=== PATIENT | female | born 1960 | race Caucasian/White ===

== ENCOUNTER 2018-06-12 08:58 | Inpatient (IN) ==
[2018-06-12] MEDS ORDERED: Clindamycin 900 MG/50 ML 900 MG/50 ML IV.SOLN IVPB ONE (09:21)
[2018-06-12] MEDS ORDERED: Albuterol 2.5 MG/3 ML NEBULIZER IH ONE (09:21)
[2018-06-12] MEDS ORDERED: Ringers Solution, Lactated 1,000 ML IVC SCH (09:30)
--- NOTE | 2018-06-12 09:31 | Discharge Summary ---
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: with [facility] use Diabetes mellitus complication status: with unspecified complications Qualified Code(s): E11.8 - Type 2 diabetes mellitus with unspecified complications; Z79.4 - prison (current) use of insulin (5) HTN (hypertension) Priority: Secondary Status: Chronic Qualifiers: Hypertension type: unspecified Qualified Code(s): I10 - Essential (primary) hypertension (6) HLD (hyperlipidemia) Priority: Secondary Status: Chronic Qualifiers: Hyperlipidemia type: unspecified Qualified Code(s): E78.5 - Hyperlipidemia, unspecified (7) History of coronary artery bypass graft Priority: Secondary Status: Chronic (8) History of NM (myocardial infarction) Priority: Secondary Status: Chronic (9) Hypothyroidism Priority: Secondary Status: Chronic Qualifiers: Hypothyroidism type: unspecified Qualified Code(s): E03.9 - Hypothyroidism, unspecified (10) Obesity Priority: Secondary Status: Chronic Qualifiers: Obesity type: unspecified obesity type Obesity classification: adult class 3 (BMI >= 40) Serious obesity comorbidity presence: unspecified whether serious comorbidity present Body mass index: BMI 45.0-49.9 Qualified Code(s): E66.01 - Morbid (severe) obesity due to excess calories; Z68.42 - Body mass index (BMI) 45.0-49.9, adult (11) Chronic pain Priority: Secondary Status: Chronic Comments: Patient is to hold chronic pain medication temporarily in immediate postoperative period while taking postoperative medications from [facility]. Qualifiers: Chronic pain type: other chronic pain Qualified Code(s): G89.29 - Other chronic pain - Hospital Course Hospital course: Ms. Burgess is a 57 year old female - Time Spent with Patient Total time spent providing and/or coordinating discharge services: - Discharge Medications Home Medications: Albuterol Sulfate [Proair Hfa] 2 puff IH Q4H PRN 06/12/18 [History] Amitriptyline [Elavil] 50 mg PO HS 06/12/18 [History] Aspirin Enteric Coated [Aspirin EC] 325 mg PO BID 10 Days #20 tablet. 06/12/18 [Rx] Atorvastatin Calcium [Lipitor] 20 mg PO HS 06/12/18 [History] Calcitriol [Rocaltrol] 0.25 mcg PO DAILY 06/12/18 [History] Carvedilol [Coreg] 6.25 mg PO BIDWM 06/12/18 [History] Cholecalciferol (D-3) [Vitamin D] 5,000 unit PO DAILY 06/12/18 [History] Diclofenac Sodium [Voltaren] 1 appl TP DAILY PRN 06/12/18 [History] Docusate Sodium [Colace] 100 mg PO BID 5 Days #10 capsule 06/12/18 [Rx] Fluticasone Propionate Nasal [Flonase] 2 spr NS DAILY PRN 06/12/18 [History] Garlic [Odor Free Garlic] 200 mg PO DAILY 06/12/18 [History] Hydrocodone/Acetaminophen [Dille 10-325 Tablet] 1 tab PO Q6H PRN 06/12/18 [History] Levothyroxine [Synthroid] 175 mcg PO 0630 06/12/18 [History] Loratadine [Allergy Relief] 10 mg PO DAILY 06/12/18 [History] Montelukast [Singulair] 10 mg PO DAILY 06/12/18 [History] Multivit-Min/FA/Lycopen/Lutein [Adults 50+ Multivitamin Tablet] 1 tab PO DAILY 06/12/18 [History] [place]-3/Dha/Epa/Fish Oil [Fish Oil 1,000 mg Softgel] 1 cap PO DAILY 06/12/18 [History] Potassium Gluconate [Potassium] 99 mg PO DAILY 06/12/18 [History] Ramipril [Altace] 2.5 mg PO DAILY 06/12/18 [History] Subcutaneous Insulin Pump [T:Slim] 1 each MC AD 06/12/18 [History] Amitriptyline [Elavil] 75 mg PO HS tablet 06/14/18 [Rx] Levothyroxine [Synthroid] 150 mcg PO 0630 tablet 06/14/18 [Rx] Pregabalin [Lyrica] 100 mg PO DAILY capsule 06/14/18 [Rx] Allergies/Adverse Reactions: Allergy/AdvReac Type Severity Reaction Status Date / Time Amoxicillin Allergy Itching Verified 06/12/18 10:31 tramadol [From Ultram] Allergy Itching Verified 06/12/18 10:31 acetaminophen [From Percocet] AdvReac Itching Verified 06/12/18 10:31 meloxicam [From Mobic] AdvReac Rash Verified 06/12/18 10:31 Oxycodone [From Percocet] AdvReac Itching Verified 06/12/18 10:31 Primary care physician: Galina Agarwal CNP - Patient Status Disposition: Transfer Inpatient Rehab Fac Condition: Good - Discharge Instructions Instructions: Hydrocodone/Acetaminophen (By mouth), Pregabalin (By mouth) Follow Up With: Jakub Engel MD [Partnered Physician] - 07/12/18 5:00 pm Karla Sorensen PAC [Physician Production Team Leader] - 06/22/18 2:00 pm (Second followup 06/30/18 @ 8am) <Jakub Engel - Last Filed: 06/14/18 10:28> Orders not resulted at time of discharge: Pending orders 06/12/18 12:15 Culture,Anaerobic [RM] Routine Culture,Wound [RM] Routine 06/14/18 06:51 Venous Doppler [EV venous imaging LE LT] Stat Date of Encounter: 06/14/18 - Discharge Diagnosis (1) Acute kidney injury Priority: Primary Status: Acute - Hospital Course Hospital course: Ms. Burgess is a 57 year old female - Time Spent with Patient Total time spent providing and/or coordinating discharge services: Date of admission: 06/12/18 14:20 Primary care physician: Galina Agarwal CNP Consults: 06/12/18 14:29 Consult to Occupational Therapy [CONS] Routine Comment: Evaluate, develop and implement POC Reason for Consult: post knee surgery Does patient have active BEDREST order?: No Is patient medically & hemodynamically stable?: Yes Consult to Orthopedic Navigator [CONS] [CONS] Routine Consult to Physical Therapy [CONS] Routine Comment: Evaluate, develop and impliment POC Reason for Consult: post knee surgery Does patient have active BEDREST order?: No Is patient medically & hemodynamically stable?: Yes Consult to Soil Fertility Extension Specialist [CONS] Routine Reason for SW Consult: post op joint replacement RT Post Op Consult [CONS] Routine Labs on day of discharge: Labs from last 24 hours 06/14/18 06/14/18 06/13/18 04:48 04:48 14:54 Hgb 9.4 L Hct 28.3 L Sodium 133 L Potassium 4.3 Chloride 101 Carbon Dioxide 25 BUN 19 Creatinine 1.50 H Est GFR ( Amer) 43 L Est GFR (Non-Af Amer) 36 L BUN/Creatinine Ratio 13 Glucose 300 H POC Glucose 412 H* Calculated Osmolality 289 Calcium 8.6 06/12/18 20:19 Hgb Hct Sodium Potassium Chloride Carbon Dioxide BUN Creatinine Est GFR ( Amer) Est GFR (Non-Af Amer) BUN/Creatinine Ratio Glucose POC Glucose 130 H Calculated Osmolality Calcium Preliminary micro results at discharge 06/12/18 12:15 Wound Culture - Preliminary Left Knee No growth. - Impressions ITS Impressions Knee X-Ray 06/12/18 01:00 IMPRESSION: 1. Revision of the left knee arthroplasty with no acute abnormality. D/ / César Cid MD / César Cid MD Interpreting Provider: César Cid MD Knee X-Ray 06/12/18 12:30 IMPRESSION: 1. Revision of the left knee arthroplasty with no acute abnormality. D/ / César Cid MD / César Cid MD Interpreting Provider: César Cid MD <Melani Owens - Last Filed: 06/15/18 22:10> - NOTES TO OUTPATIENT PROVIDER Notes to Outpatient Provider: Will need repeat H&H on 06/16/18 and will need to monitor renal function. Orders not resulted at time of discharge: Pending orders 06/12/18 12:15 Culture,Anaerobic [RM] Routine Date of Encounter: 06/15/18 Time of Encounter: 21:54 - Discharge Diagnosis (1) Status post revision of total replacement of left knee Priority: Primary Status: Acute (2) Painful orthopaedic hardware Priority: Primary Status: Chronic (3) Acute kidney injury Priority: Secondary Status: Acute (4) Chronic pain Priority: Secondary Status: Chronic Qualifiers: Chronic pain type: other chronic pain Qualified Code(s): G89.29 - Other chronic pain (5) Diabetes mellitus Priority: Secondary Status: Chronic Qualifiers: Diabetes mellitus type: type 2 Diabetes mellitus [facility] 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 Diabetes mellitus complication status: with unspecified complications Qualified Code(s): E11.8 - Type 2 diabetes mellitus with unspecified complications; 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 of 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 (6) HLD (hyperlipidemia) Priority: Secondary Status: Chronic Qualifiers: Hyperlipidemia type: unspecified Qualified Code(s): E78.5 - Hyperlipidemia, unspecified (7) HTN (hypertension) Priority: Secondary Status: Chronic Qualifiers: Hypertension type: unspecified Qualified Code(s): I10 - Essential (primary) hypertension (8) History of NM (myocardial infarction) Priority: Secondary Status: Chronic (9) History of coronary artery bypass graft Priority: Secondary Status: Chronic (10) History of total left knee replacement Priority: Primary Status: Chronic (11) Hypothyroidism Priority: Secondary Status: Chronic Qualifiers: Hypothyroidism type: unspecified Qualified Code(s): E03.9 - Hypothyroidism, unspecified (12) Obesity Priority: Secondary Status: Chronic Qualifiers: Obesity type: unspecified obesity type Obesity classification: adult class 3 (BMI >= 40) Serious obesity comorbidity presence: unspecified whether serious comorbidity present Body mass index: BMI 45.0-49.9 Qualified Code(s): E66.01 - Morbid (severe) obesity due to excess calories; Z68.42 - Body mass index (BMI) 45.0-49.9, adult - Hospital Course Hospital course: Ms. Burgess is a 57 year old female status post Left revision total knee 06/12/18 with history of painful hardware from previous TKR, DM, HTN, HLD, obesity, hypothyroid, and h/o of NM/CABG. She was noted to have CLARIBEL after surgery which did show improvement with increased PO fluid intake and reduction of nephrotoxic meds. Will need to continue to monitor upon discharge. She did have several spikes in temperature with low 90s O2sat which improved with education of using IS but she was admittedly noncompliant with this despite education on risk of pneumonia after surgery. CXR showed no acute abnormalities. She did have LLE swelling and calf pain - doppler was negative for DVT. She participated in therapy and was stable at time of discharge. Patient was discharged after being evaluated by Dr. Engel this morning but before PCR. H/H - 8.8/26.6 - continuation of slight decrease - will have H&H repeated tomorrow may need to consider reaching out to her tax credit leasing consultant/PCP. Max POC glucose 412 on POD#1 POC glucose consistently in 200s last 2 days. Pain control adequate at this time. ECF plan - accepted to [facility] today. - Time Spent with Patient Total time spent providing and/or coordinating discharge services: Date of admission: 06/12/18 14:20 Primary care physician: Galina Agarwal CNP Consults: 06/12/18 14:29 Consult to Occupational Therapy [CONS] Routine Comment: Evaluate, develop and implement POC Reason for Consult: post knee surgery Does patient have active BEDREST order?: No Is patient medically & hemodynamically stable?: Yes Consult to Orthopedic Navigator [CONS] [CONS] Routine Consult to Physical Therapy [CONS] Routine Comment: Evaluate, develop and impliment POC Reason for Consult: post knee surgery Does patient have active BEDREST order?: No Is patient medically & hemodynamically stable?: Yes Consult to Soil Fertility Extension Specialist [CONS] Routine Reason for SW Consult: post op joint replacement RT Post Op Consult [CONS] Routine Discharging clinician: Jakub Engel Anticipated date of discharge: 06/15/18 Labs on day of discharge: Labs from last 24 hours 06/15/18 06/15/18 06/15/18 11:43 09:35 09:35 WBC 5.8 RBC 3.08 L Hgb 8.8 L Hct 26.6 L MCV 86.4 MCH 28.6 MCHC 33.1 RDW 13.8 Plt Count 118 L MPV 12.5 H Immature Gran % 1.0 Seg Neutrophils % 73.5 Lymphocytes % 10.8 Monocytes % 11.0 Eosinophils % 3.4 Basophils % 0.3 Neutrophils # 4.3 Lymphocytes # 0.6 Monocytes # 0.6 Eosinophils # 0.2 Basophils # 0.0 Sodium 134 L Potassium 4.1 Chloride 101 Carbon Dioxide 25 BUN 19 Creatinine 1.43 H Est GFR ( Amer) 46 L Est GFR (Non-Af Amer) 38 L BUN/Creatinine Ratio 13 Glucose 249 H POC Glucose 206 H Calculated Osmolality 289 Calcium 8.4 L 06/15/18 06/14/18 06/14/18 06:57 20:20 12:05 WBC RBC Hgb Hct MCV MCH MCHC RDW Plt Count MPV Immature Gran % Seg Neutrophils % Lymphocytes % Monocytes % Eosinophils % Basophils % Neutrophils # Lymphocytes # Monocytes # Eosinophils # Basophils # Sodium Potassium Chloride Carbon Dioxide BUN Creatinine Est GFR ( Amer) Est GFR (Non-Af Amer) BUN/Creatinine Ratio Glucose POC Glucose 259 H 286 H 224 H Calculated Osmolality Calcium 06/14/18 07:10 WBC RBC Hgb Hct MCV MCH MCHC RDW Plt Count MPV Immature Gran % Seg Neutrophils % Lymphocytes % Monocytes % Eosinophils % Basophils % Neutrophils # Lymphocytes # Monocytes # Eosinophils # Basophils # Sodium Potassium Chloride Carbon Dioxide BUN Creatinine Est GFR ( Amer) Est GFR (Non-Af Amer) BUN/Creatinine Ratio Glucose POC Glucose 275 H Calculated Osmolality Calcium Preliminary micro results at discharge 06/12/18 12:15 Anaerobic Culture - Preliminary Left Knee At this time, no anaerobic growth is present. The culture will be finalized after 5 days of incubation. - Impressions ITS Impressions Knee X-Ray 06/12/18 01:00 IMPRESSION: 1. Revision of the left knee arthroplasty with no acute abnormality. D/ / César Cid MD / César Cid MD Interpreting Provider: César Cid MD Knee X-Ray 06/12/18 12:30 IMPRESSION: 1. Revision of the left knee arthroplasty with no acute abnormality. D/ / César Cid MD / César Cid MD Interpreting Provider: César Cid MD Chest X-Ray 06/14/18 15:49 IMPRESSION: Cardiomegaly, otherwise, no acute abnormality seen chest D/ / Juan Negro MD / Juan Negro MD Interpreting Provider: Juan Negro MD - Patient Status Overall status at discharge: patient is progressing back to baseline - Diet and Activity Activity: as per physical therapy Diet: advance to your usual diet
--- NOTE | 2018-06-12 09:46 | History & Physical Report ---
Date of Encounter: 06/12/18 Time of Encounter: 09:46 24 Hour HP Update - Instructions Instructions: If the History and Physical is less than 30 days old and was completed prior to A.M. admission and or procedure and has NOT been updated on calendar day of procedure please complete this update prior to performing procedure. - Update Patient reports changes in Medical Condition: No Changes in examination, assessment, or condition: No Changes in Medication: No Preop tests/diagnostics Reviewed: Yes Surgery Remains Indicated: Yes Consent for Planned Operative Procedure(s) Verified: Yes - Pre-Operative Checklist Preoperative Checklist Indicated: No Prophylactic Antibiotic Ordered: Yes Is VTE Prophylaxis Indicated?: Yes
[2018-06-12] MEDS ORDERED: *HR* FentaNYL (PF) 100 MCG/2 ML VIAL ONE (10:11)
[2018-06-12] MEDS ORDERED: *HR* Midazolam HCl 2 MG/2 ML VIAL ONE ×2 (10:11→12:01)
[2018-06-12] MEDS ORDERED: Lidocaine -MPF 2% 2 ML VIAL ONE (10:11)
[2018-06-12] MEDS ORDERED: *HR* Propofol 200 MG/20 ML VIAL IVP ONE (10:11)
[2018-06-12] MEDS ORDERED: Dexamethasone 4 MG/ML VIAL ONE ×2 (10:15→10:24)
[2018-06-12] MEDS ORDERED: Ondansetron 4 MG/2 ML VIAL ONE (10:15)
--- NOTE | 2018-06-12 10:20 | Anesthesia Evaluation PreOp ---
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: Other (peripheral neuropathy from diabetes) Other Medical History: Renal (stage 3 ckd), Diabetes Type I (uses insulin pump), Thyroid (hypothyroidism), Other (BMI 49) Anesthesia History: No Prior Anesthetic Complications Alcohol Use: none Drug use: none Medications and Allergies Doxycycline 100 mg PO BID #20 capsule 06/01/17 [Rx] Aspirin Enteric Coated [Aspirin EC] 325 mg PO BID 10 Days #20 tablet.dr 06/12/18 [Rx] Docusate Sodium [Colace] 100 mg PO BID 5 Days #10 capsule 06/12/18 [Rx] Allergy/AdvReac Type Severity Reaction Status Date / Time Amoxicillin Allergy Itching Verified 05/15/18 15:56 tramadol [From Ultram] Allergy Itching Verified 05/15/18 15:56 acetaminophen [From Percocet] AdvReac Itching Verified 05/15/18 15:56 meloxicam [From Mobic] AdvReac Rash Verified 05/15/18 15:56 Oxycodone [From Percocet] AdvReac Itching Verified 05/15/18 15:56 - Meds/Allergy Pre-op Review Medications Reviewed: Yes Allergies Reviewed: Yes Beta Blockers on Current Med List: Yes (coreg) If Beta Blockers taken, Date/Time (Last Dose taken): 06-12-18 coreg 8 am Anesthesia Results - Imaging EKG: report reviewed, image reviewed (SINUS BRADYCARDIA ANTERIOR MYOCARDIAL INFARCTION, OF INDETERMINATE AGE) Additional studies: Laboratory Tests 05/15/18 05/15/18 05/15/18 16:23 16:23 16:23 WBC 4.9 Hgb 12.4 L Hct 38.9 Plt Count 172 PT 11.3 INR 1.0 APTT 33.7 Sodium 136 Potassium 4.4 Chloride 103 Carbon Dioxide 26 BUN 22 H Creatinine 1.27 Est GFR ( Amer) > 60 Est GFR (Non-Af Amer) 58 L BUN/Creatinine Ratio 17 Est Mean Plasma Glucose Hemoglobin A1c 05/15/18 16:23 WBC Hgb Hct Plt Count PT INR APTT Sodium Potassium Chloride Carbon Dioxide BUN Creatinine Est GFR ( Amer) Est GFR (Non-Af Amer) BUN/Creatinine Ratio Est Mean Plasma Glucose 160 Hemoglobin A1c 7.2 H Anesthesia Exam Last Vital Signs Temp 97.9 F 06/12/18 09:52 Pulse 68 06/12/18 09:52 Resp 18 06/12/18 09:52 BP 128/70 06/12/18 09:52 Pulse Ox 93 06/12/18 09:52 Weight: 134 kg NPO (# of Hours): > 8 hrs - HEENT Pupil (Motor): Pupils equal, EOMI Mallampati: III Teeth: Edentulous Oral Opening: Greater than 3 - FINANCIAL SERVICE REPRESENTATIVE LOC: Oriented - Cardiac Rhythm: Regular Murmur: None - Pulmonary Breath Sounds: bilateral Clear Respiratory Effort: Symmetrical Anesthesia Assess/Plan ASA Score: 4 Level of consciousness: Cooperative Anesthetic Plan: MAC, Spinal (with duramorph) Monitoring Plan: Standard Monitors Recovery Plan: PACU
[2018-06-12] MEDS ORDERED: Propofol 500 MG/50 ML INFUS..BTL ONE (10:35)
[2018-06-12] MEDS ORDERED: *HR* Promethazine 25 MG/ML VIAL IVP PRN (10:42)
[2018-06-12] MEDS ORDERED: *HR* Morphine Sulfate/PF 10 MG/10 ML AMPUL ONE (11:04)
[2018-06-12] MEDS ORDERED: Ethanol\\Acetic Acid\\Na Ace\\Ben 1,000 ML IRRIG.SOLN IR ONE (11:25)
--- NOTE | 2018-06-12 11:28 | Anesthesia Procedures ---
Date of Encounter: 06/12/18 Time of Encounter: 11:25 Procedures: Anesthesia - Epidural/Spinal Patient ID/Chart reviewed: Yes Patient examined: Yes Consent Obtained: Yes Supplemental Oxygen: Nasal Cannula Supplemental Oxygen Rate (L/min): 2 Sedation: Versed (mg): 2 Sedation: Fentanyl (mcg): 100 Site Prep: Aseptic Technique, 0.5% Chlorhexidine/Alcohol Patient position: upright Local Anesthetic: Lidocaine 1% Blood: No CSF: Yes Paresthesia: No Spinal Needle Gauge: 22 Spinal Dose: 2.5ml 0.5% marcaine with 200mcg duramorph Vitals + FHT's: Vital Signs/O2 Sat, Most Current Temp Pulse Resp BP Pulse Ox 97.9 F 66 18 88/45 96 06/12/18 09:52 06/12/18 11:27 06/12/18 09:52 06/12/18 11:27 06/12/18 11:27
[2018-06-12] MEDS ORDERED: *HR* PHENYLEPHRINE 1,000 MCG/10 ML SYRINGE IVP ONE (11:30)
[2018-06-12] MEDS ORDERED: EPHEDrine 50 MG/ML VIAL ONE (12:12)
[2018-06-12] MEDS ORDERED: *HR* Vasopressin 20 UNIT/ML VIAL ONE (12:49)
--- NOTE | 2018-06-12 12:58 | Orthopedic Operative Note ---
Date of procedure: 06/12/18 Pre-op diagnosis: Aseptic loosening left total knee Post-op diagnosis: same Procedure: Procedure: Left revision total knee Estimated blood loss: 400 Hardware: Metal and polyethylene replacement. Chrissy femur: 2, 16 x 100 stem Tibia: 3, 14 x 100 stem Constrained Michell: 16 TS Exam Under anesthesia: Patient with significant varus valgus instability. Well- healed incision no sign of infection Procedural Notes: Severe gross loosening of the femur and the tibia Operative procedure: The patient was brought to the operating room and placed on the operating room table. After general anesthesia was administered the operative knee was examined. Findings were noted in the exam under anesthesia. The operative extremity was prepped and draped in sterile surgical fashion. The patient received IV antibiotics prior to skin incision. A standard midline incision was made centered over the patella through the old incision. The incision was made through the skin and subcutaneous tissue. A medial parapatellar tendon approach was performed. Care was taken to preserve tissue along the medial aspect of the patella. And to protect the patella tendon. The deep MCL was released off the medial tibia. The infra patella fat pad was excised. Fluid was encountered this was normal joint fluid, Cultures were obtained and gram . The knee was brought into flexion the poly-was removed. The patient's femoral component was significantly loose and was removed by hand. Femoral component was removed without significant bone loss. Attention was then turned to the tibial component. An osteotome was used to disrupt interface between the patient's tibial component and the patients proximal tibia. The tibial component was loose, was removed without significant bone loss. The tibia was sized to a 3 it was reamed up to a 14 x100 Trial had good fit and fixation. The femur was sized to a 2, was reamed up to a [id number]. The finishing guide was seated and the box cut was made. The trial had good fit and fixation. Both trial components were seated and the 16 constrained Michell was seated and secured. The knee had full flexion and full extension with no instability. Patella had excellent patella tracking. The trial components were removed. The knee sat for 2 minutes with a antibacterial solution. It was irrigated out with 2 L of pulse irrigation. The components were assembled on the back table, the tibia cemented first followed by the femur. The 16 constrained liner was seated and secure. The knee was brought to full extension while the cement hardened. After the cement hardened the knee was irrigated out again. The PA close the knee. The extensor mechanism was closed with a running #2 Fiberwire suture and a running #2 PDS suture. The deep tissue was irrigated and closed deep with #1 PDS suture superficially with 0 PDS suture. The skin was closed with skin raul. The patient was placed in a sterile dressing and postoperative brace. They were extubated and transferred to recovery room in stable condition. Anesthesia: spinal Surgeon: Jakub Engel Was there an ob gyn physician assistant present: No Estimated blood loss (cc): 200 Condition: stable Disposition: PACU
--- NOTE | 2018-06-12 14:15 | Anesthesia Evaluation Post Op ---
Date of Encounter: 06/12/18 Time of Encounter: 14:14 - Vital Signs Vital Signs: Vital Signs/O2 Sat, Most Current Temp Pulse Resp BP Pulse Ox 97.8 F 74 16 106/57 92 06/12/18 14:10 06/12/18 14:10 06/12/18 14:10 06/12/18 14:10 06/12/18 14:10 - Lungs Lungs: Clear Ascult./Percussion - Airway Airway: Non-obstructed - Cardiovascular Regular Rate - Mental Status Mental Status: Alert & Oriented, Answers Appropriately - Pain Pain Scale: 0 Pain Scale used: Numeric (1 - 10) - Nausea Vomiting Nausea Vomiting: Not Present - Hydration Hydration: Tolerates oral liquids, Has not voided - Discharge PostOp Status: Transfer Patient to floor
[2018-06-12] MEDS ORDERED: Naloxone 0.4 MG/ML INJ IVP PRN (14:29)
[2018-06-12] MEDS ORDERED: Fluticasone Propionate Nasal 50 MCG/SPRAY BOTTLE NS PRN (14:29)
[2018-06-12] MEDS ORDERED: Temazepam 15 MG CAPSULE PO PRN (14:29)
[2018-06-12] MEDS ORDERED: *HR* HYDROcodone/Acet 5/325 mg TABLET PO PRN (14:29)
[2018-06-12] MEDS ORDERED: Ondansetron 4 MG/2 ML VIAL IVP PRN (14:29)
[2018-06-12] MEDS ORDERED: MOM Conc 10 ML UD.LIQ PO PRN (14:29)
[2018-06-12] MEDS ORDERED: Sennosides 8.6 MG TABLET PO PRN (14:29)
[2018-06-12] MEDS ORDERED: Acetaminophen 325 MG TABLET PO PRN (14:29)
[2018-06-12 14:39] LABS: Hematocrit 34.4 % (35.3-44.9)
[2018-06-12] MEDS ORDERED: Ringers Solution, Lactated 1,000 ML ONE (14:41)
[2018-06-12] MEDS ORDERED: Ringers Solution, Lactated 1,000 ML IVC ONE (15:09)
[2018-06-12] MEDS ORDERED: Clindamycin 900 MG/50 ML 900 MG/50 ML IV.SOLN IVPB SCH (16:00)
[2018-06-12] MEDS: Subcutaneous Insulin Pump [T:Slim] 1 EACH MC SCH (16:02)
[2018-06-12] MEDS ORDERED: *HR* Enoxaparin 30 MG/0.3 ML SYRINGE SQ SCH (18:00)
[2018-06-12] MEDS: *HR* Enoxaparin 30 MG/0.3 ML SYRINGE SQ SCH (18:02)
[2018-06-12] MEDS: *HR* HYDROcodone/Acet 10/325 mg TABLET PO PRN (18:02)
[2018-06-12] MEDS: Clindamycin 900 MG/50 ML 900 MG/50 ML IV.SOLN IVPB SCH (20:01)
[2018-06-12] MEDS: Ringers Solution, Lactated 1,000 ML IVC SCH (20:03)
[2018-06-12] MEDS: Pregabalin 50 MG CAPSULE PO SCH (22:03)
[2018-06-13] MEDS: Ringers Solution, Lactated 1,000 ML IVC SCH (04:08)
[2018-06-13] MEDS: Clindamycin 900 MG/50 ML 900 MG/50 ML IV.SOLN IVPB SCH (04:12)
[2018-06-13] MEDS: *HR* Enoxaparin 30 MG/0.3 ML SYRINGE SQ SCH ×2 (06:06→16:57)
[2018-06-13 06:21] LABS: Hematocrit 33.3 % (35.3-44.9); Hemoglobin 10.7 g/dL (11.5-15.4)
--- NOTE | 2018-06-13 06:37 | Orthopedics Progress Note ---
Date of Encounter: 06/13/18 Time of Encounter: 06:36 Subjective Interval history: Patient was seen this morning doing well without complaints. Afebrile vital signs stable. Operative extremity: Neurovascularly intact Dressing clean dry and intact Calves nontender Assessment and plan: Continue with postoperative care Plan for discharge if cleared by PT Objective Vital signs: Vital Signs Temp Pulse Resp BP Pulse Ox 06/13/18 04:52 98.7 F 83 17 142/76 95 06/12/18 23:03 98.1 F 70 16 110/70 97 06/12/18 18:36 97.9 F 73 17 104/71 98 06/12/18 14:53 97.4 F L 75 14 97/67 92 06/12/18 14:31 74 14 80/41 97 06/12/18 14:10 97.8 F 74 16 106/57 92 06/12/18 14:00 97.6 F 71 16 89/56 97 06/12/18 13:50 97.6 F 75 16 102/61 96 06/12/18 13:40 97.4 F L 76 14 116/44 94 06/12/18 11:44 62 16 90/45 98 06/12/18 11:38 101/56 06/12/18 11:37 63 78/45 98 06/12/18 11:27 66 88/45 96 06/12/18 11:22 64 109/40 96 06/12/18 09:52 97.9 F 68 18 128/70 93 Intake and Output 06/12/18 06/12/18 06/13/18 15:59 23:59 07:59 Intake Total 530 / 530 1240 / 1240 Output Total 100 / 100 Balance -100 / -100 530 / 530 1240 / 1240 Intake: IV Fluids 50 / 50 1000 / 1000 Lactated Ringers 1,000 ML @ 75 1000 / 1000 mls/hr IVC .[id number] [facility]LES[facility] Rx#: [id number] Cleocin Premix 900 MG/50 ML 900 50 / 50 mg In 50 ml @ 50 mls/hr IVPB Q8H [facility] Rx#:[id number] Oral 480 / 480 240 / 240 Output: Estimated Blood Loss 100 / 100 Other: Meal Dinner Percent of Meal Consumed 100% # Voids 1 Weight 134.263 kg 134.262 kg Blood Glucose* 141 Patient Weight 06/13/18 23:59 Weight 134.262 kg - Labs CBC & BMP: 06/13/18 06:06 Labs: Abnormal lab results Hgb 10.7 g/dL (11.5-15.4) L 06/13/18 06:06 Hct 33.3 % (35.3-44.9) L 06/13/18 06:06 POC Glucose 173 mg/dL (70-99) H 06/12/18 09:48 Consult Discharge Plan - Plan Referrals: Galina Agarwal, [employer] [Primary Care Provider] -
[2018-06-13 06:42] LABS: Calcium 8.4 mg/dL (8.6-10.3); Potassium 4.9 mEq/L (3.5-5.1)
[2018-06-13] MEDS ORDERED: NON-FORMULARY MEDICATION 1 EACH EACH (Omega-3/Dha/Epa/Fish Oil [Fish Oil 1,000 Mg Softgel] PO SCH (09:00)
[2018-06-13] MEDS: *HR* HYDROcodone/Acet 10/325 mg TABLET PO PRN ×2 (09:15→19:48)
[2018-06-13] MEDS: Pregabalin 50 MG CAPSULE PO SCH (09:15)
[2018-06-13] MEDS: Aspirin Enteric Coated 81 MG Tablet PO SCH (09:16)
[2018-06-13] MEDS: Loratadine 10 MG TABLET PO SCH (09:16)
[2018-06-13] MEDS: Cholecalciferol (D-3) 1,000 UNIT TABLET PO SCH (09:16)
[2018-06-13] MEDS: Multivit/Ca/Min/Fe/FA 1 TAB TABLET PO SCH (09:16)
[2018-06-13] MEDS: Potassium Gluconate [Potassium] 99 MG PO SCH (09:20)
[2018-06-13] MEDS: Acetaminophen IV 1,000 MG/100 ML INFUS..BTL IVPB PRN (11:59)
--- NOTE | 2018-06-13 12:07 | Event Note ---
Date of Encounter: 06/13/18 Time of Encounter: 12:07 POD#1 Date of procedure: 06/12/18 Pre-op diagnosis: Aseptic loosening left total knee Post-op diagnosis: same Procedure: Procedure: Left revision total knee Patient c/o left ankle pain where compression devices sit. States that other than pain she is feeling okay. Denies lack of sensation to void, nausea, vomiting, abdominal pain. Renal function noted to be depressed from baseline SCr 1.7 and eGFR 38 from baseline of 58. Patient alert and oriented x 3 Non-pitting edema noted to b/l LE. No calf tenderness warmth or erythema noted. Incision c/d/i Neurovascularly intact. Nephrotoxic meds decreased/cancelled. Halved Lyrica secondary to adverse effects of abrupt withdrawal. Repeat BMP in the AM Strict I&Os ---- Encourage PO non-caffeinated fluids. Bladder scan to eval postvoid residual for post-renal cause. Patient with h/o cardiac issues - will monitor for pre-renal and renal causation of depressed renal function. Also working to control BG - has been severely elevated. Patient on insulin pump. Nursing to encourage patient to check that pump is attached correctly. If continued issue with control of BG through the night, may need to consider reaching out to her club former/PCP. Pain control adequate at this time. ECF plan - awaiting approval Vital Signs Temp Pulse Resp BP Pulse Ox 06/13/18 15:04 97.4 F L 92 12 136/94 98 06/13/18 11:38 99.3 F 102 18 165/63 92 06/13/18 09:14 122/68 06/13/18 08:31 97.7 F 67 19 90/56 93 06/13/18 04:52 98.7 F 83 17 142/76 95 06/12/18 23:03 98.1 F 70 16 110/70 97 06/12/18 18:36 97.9 F 73 17 104/71 98 Intake and Output 06/13/18 06/13/18 06/13/18 07:59 15:59 23:59 Intake Total 1240 / 1240 240 / 240 Output Total 350 / 350 Balance 1240 / 1240 -110 / -110 Intake: IV Fluids 1000 / 1000 Lactated Ringers 1,000 ML @ 75 1000 / 1000 mls/hr IVC .[id number] K[facility]LES[facility] Rx#: [id number] Oral 240 / 240 240 / 240 Output: Urine 350 / 350 Other: Meal Breakfast Percent of Meal Consumed 100% # Voids 1 Weight 134.262 kg Blood Glucose* 412 Patient Weight 06/13/18 23:59 Weight 134.262 kg Short CBC 06/13/18 Range/Units 06:06 Hgb 10.7 L (11.5-15.4) g/dL Hct 33.3 L (35.3-44.9) % BMP 06/13/18 Range/Units 06:06 Sodium 132 L (136-145) mEq/L Potassium 4.9 (3.5-5.1) mEq/L Chloride 98 (98-107) mEq/L Carbon Dioxide 25 (23-29) mEq/L BUN 19 (6-20) mg/dL Creatinine 1.70 H (0.60-1.20) mg/dL Glucose 232 H (70-105) mg/dL Calcium 8.4 L (8.6-10.3) mg/dL
[2018-06-13] MEDS: Subcutaneous Insulin Pump [T:Slim] 1 EACH MC SCH (17:02)
[2018-06-14 05:14] LABS: Hematocrit 28.3 % (35.3-44.9); Hemoglobin 9.4 g/dL (11.5-15.4)
[2018-06-14 05:32] LABS: Calcium 8.6 mg/dL (8.6-10.3); Potassium 4.3 mEq/L (3.5-5.1)
[2018-06-14] MEDS: *HR* Enoxaparin 30 MG/0.3 ML SYRINGE SQ SCH ×2 (05:47→17:43)
[2018-06-14] MEDS: *HR* HYDROcodone/Acet 10/325 mg TABLET PO PRN ×2 (05:49→12:42)
--- NOTE | 2018-06-14 08:23 | Physician Discharge Referral ---
<Melani Dunham E - Last Filed: 06/14/18 10:17> ExtendedCare Referral Info Transfer To: [facility] Provider in Charge: Dr. Jakub Engel - Diagnosis (1) Painful orthopaedic hardware Priority: Primary Status: Chronic (2) History of total left knee replacement Priority: Primary Status: Chronic (3) Status post revision of total replacement of left knee Priority: Primary Status: Acute (4) Diabetes mellitus Priority: Secondary Status: Chronic (5) HTN (hypertension) Priority: Secondary Status: Chronic (6) HLD (hyperlipidemia) Priority: Secondary Status: Chronic (7) History of coronary artery bypass graft Priority: Secondary Status: Chronic (8) History of [place] (myocardial infarction) Priority: Secondary Status: Chronic (9) Hypothyroidism Priority: Secondary Status: Chronic (10) Obesity Priority: Secondary Status: Chronic (11) Chronic pain Priority: Secondary Status: Chronic Expected Duration of Placement: less than 30 days Prognosis: Good Aware of Diagnosis: Patient Aware of Prognosis: Patient - Transfer Medications Home Medications: Albuterol Sulfate [Proair Hfa] 2 puff IH Q4H PRN 06/12/18 [History] Amitriptyline [Elavil] 50 mg PO HS 06/12/18 [History] Aspirin Enteric Coated [Aspirin EC] 325 mg PO BID 10 Days #20 tablet. 06/12/18 [Rx] Atorvastatin Calcium [Lipitor] 20 mg PO HS 06/12/18 [History] Calcitriol [Rocaltrol] 0.25 mcg PO DAILY 06/12/18 [History] Carvedilol [Coreg] 6.25 mg PO BIDWM 06/12/18 [History] Cholecalciferol (D-3) [Vitamin D] 5,000 unit PO DAILY 06/12/18 [History] Diclofenac Sodium [Voltaren] 1 appl TP DAILY PRN 06/12/18 [History] Docusate Sodium [Colace] 100 mg PO BID 5 Days #10 capsule 06/12/18 [Rx] Fluticasone Propionate Nasal [Flonase] 2 spr NS DAILY PRN 06/12/18 [History] Garlic [Odor Free Garlic] 200 mg PO DAILY 06/12/18 [History] Hydrocodone/Acetaminophen [[place] 10-325 Tablet] 1 tab PO Q6H PRN 06/12/18 [History] Levothyroxine [Synthroid] 175 mcg PO 0630 06/12/18 [History] Loratadine [Allergy Relief] 10 mg PO DAILY 06/12/18 [History] Montelukast [Singulair] 10 mg PO DAILY 06/12/18 [History] Multivit-Min/FA/Lycopen/Lutein [Adults 50+ Multivitamin Tablet] 1 tab PO DAILY 06/12/18 [History] [place]-3/Dha/Epa/Fish Oil [Fish Oil 1,000 mg Softgel] 1 cap PO DAILY 06/12/18 [History] Potassium Gluconate [Potassium] 99 mg PO DAILY 06/12/18 [History] Ramipril [Altace] 2.5 mg PO DAILY 06/12/18 [History] Subcutaneous Insulin Pump [T:Slim] 1 each MC AD 06/12/18 [History] Amitriptyline [Elavil] 75 mg PO HS tablet 06/14/18 [Rx] Levothyroxine [Synthroid] 150 mcg PO 0630 tablet 06/14/18 [Rx] Pregabalin [Lyrica] 100 mg PO DAILY capsule 06/14/18 [Rx] Allergies/Adverse Reactions: Allergy/AdvReac Type Severity Reaction Status Date / Time Amoxicillin Allergy Itching Verified 06/12/18 10:31 tramadol [From Ultram] Allergy Itching Verified 06/12/18 10:31 acetaminophen [From Percocet] AdvReac Itching Verified 06/12/18 10:31 meloxicam [From Mobic] AdvReac Rash Verified 06/12/18 10:31 Oxycodone [From Percocet] AdvReac Itching Verified 06/12/18 10:31 - Respiratory Orders Smoking Cessation: Smoking cessation has been advised. For more information, call the [place] Tobacco Quit Line at 3-936-MDRT-NOW. - Ancillary Orders May use pressure relief devices daily prn, May go on MOISÉS w/family/respon green party w/meds at nurse discretion PRN, May consult with Dentist, [employer] Supervisor, Case Work Aide PRN - Mobility Orders Chair, Ambulate - Rehabiliation Orders Rehab Potential: Good Rehab Orders: Evaluation for Physical Therapy, Evaluation for Occupational Therapy Other: Total Knee replacement Precautions x 6 weeks Apply cold therapy wrap 3-6x/day for 20 minutes at a time. Encourage ambulation throughout the day and incentive spirometer 10x/hour. Elevate affected extremity above heart as tolerated. Brace: Wear knee immobilizer at night x 2 weeks. - Treatments Skin tear care topically daily PRN per policy List/Other: Opsite placed. Keep dressing intact until first follow up appointment. If greater than 50% saturated, notify office, remove dressing and place appropriate dressing back in place. Leave Zipline intact. Opsite dressing is water resistant, not water-proof. OK to shower, but do not get dressing wet. - Diet Orders Regular CERTIFICATION: I certify that the transfer of the above named patient to an Extended Care Facility is necessary for the continuing treatment of the diagnosis listed. The above information is true and accurate reflection of patient's current condition. Confidential - Redisclosure prohibited without a patient's written consent. <Melani Owens - Last Filed: 06/15/18 13:25> - Respiratory Orders Smoking Cessation: Smoking cessation has been advised. For more information, call the [place] Tobacco Quit Line at 7-126-QPGN-NOW. - Lab Orders Lab Orders: Other (include drug levels w/frequency) (Need to monitor renal function and repeat H&H on 06/16/18) - Advance Directives Code Status: Full Code - Treatments List/Other: Encourage continued use of incentive spirometer. CERTIFICATION: I certify that the transfer of the above named patient to an Extended Care Facility is necessary for the continuing treatment of the diagnosis listed. The above information is true and accurate reflection of patient's current co ndition. Confidential - Redisclosure prohibited without a patient's written consent.
--- NOTE | 2018-06-14 08:27 | Orthopedics Progress Note ---
Date of Encounter: 06/14/18 Time of Encounter: 08:26 Subjective Interval history: Patient was seen this morning doing well without complaints. Afebrile vital signs stable. Operative extremity: Neurovascularly intact Dressing clean dry and intact Calves nontender Assessment and plan: Continue with postoperative care Plan for discharge based on approval and ability Objective Vital signs: Vital Signs Temp Pulse Resp BP Pulse Ox 06/14/18 07:05 100.4 F H 92 17 162/77 96 06/14/18 03:13 98.5 F 101 14 128/49 93 06/13/18 23:45 100.2 F H 95 15 174/55 90 06/13/18 20:10 97.6 F 88 16 138/88 97 06/13/18 15:04 97.4 F L 92 12 136/94 98 06/13/18 11:38 99.3 F 102 18 165/63 92 06/13/18 09:14 122/68 06/13/18 08:31 97.7 F 67 19 90/56 93 Intake and Output 06/13/18 06/14/18 06/14/18 23:59 07:59 15:59 Intake Total 100 / 100 Output Total 0 / 0 1250 / 1250 Balance 100 / 100 -1250 / -1250 Intake: IV Fluids 100 / 100 Ofirmev 1,000 mg/100 ml 1,000 100 / 100 mg In 100 ml @ 400 mls/hr IVPB Q6HR PRN Rx#:[id number] Oral 0 / 0 Output: Urine 0 / 0 1250 / 1250 Other: Percent of Meal Consumed 0% # Voids 1 Weight 135.6 kg Blood Glucose* 266 275 Patient Weight 06/14/18 23:59 Weight 135.6 kg - Labs CBC & BMP: 06/14/18 04:48 06/14/18 04:48 Labs: Abnormal lab results Hgb 9.4 g/dL (11.5-15.4) L 06/14/18 04:48 Hct 28.3 % (35.3-44.9) L 06/14/18 04:48 Sodium 133 mEq/L (136-145) L 06/14/18 04:48 Creatinine 1.50 mg/dL (0.60-1.20) H 06/14/18 04:48 Est GFR ( Amer) 43 (> 60) L 06/14/18 04:48 Est GFR (Non-Af Amer) 36 (> 60) L 06/14/18 04:48 Glucose 300 mg/dL (70-105) H 06/14/18 04:48 POC Glucose 412 mg/dL (70-99) H* 06/13/18 14:54 Consult Discharge Plan - Plan Referrals: Galina Agarwal, [employer] [Primary Care Provider] -
[2018-06-14] MEDS: Loratadine 10 MG TABLET PO SCH (08:50)
[2018-06-14] MEDS: Aspirin Enteric Coated 81 MG Tablet PO SCH (08:50)
[2018-06-14] MEDS: Multivit/Ca/Min/Fe/FA 1 TAB TABLET PO SCH (08:50)
[2018-06-14] MEDS: Cholecalciferol (D-3) 1,000 UNIT TABLET PO SCH (08:50)
[2018-06-14] MEDS: Pregabalin 50 MG CAPSULE PO SCH (08:50)
[2018-06-14] MEDS: Potassium Gluconate [Potassium] 99 MG PO SCH (09:20)
--- NOTE | 2018-06-14 17:33 | Event Note ---
Date of Encounter: 06/14/18 Time of Encounter: 12:15 PCR: POD#2 Left revision total knee 06/12/18 Patient had doppler today due to LLE swelling - preliminary report negative for DVT Renal function improving today. Will continue to monitor. Educated patient on importance of fluid hydration with water not soda. Temp max overnight 100.4, has continued to fluctuate through day, currently to 99.5 with O2 93% on room air. Encouraged IS again and patient admits to not using it as much as she should. Due to continued fluctuation in temp and low O2 sat ordered CXR which showed no acute abnormalities other than cardiomegaly. Will continue to monitor over night for changes/spikes to temp. Continue with tylenol as needed as well. H/H - 9.4/28.3 Na 133 Patient alert and oriented x 3 Non-pitting edema noted to b/l LE. No calf tenderness warmth or erythema noted. Incision c/d/i Neurovascularly intact. Nephrotoxic meds decreased/cancelled. Halved Lyrica secondary to adverse effects of abrupt withdrawal. Repeat BMP in the AM Strict I&Os ---- Encourage PO non-caffeinated fluids. Patient with h/o cardiac issues - will monitor for pre-renal and renal causation of depressed renal function. Also working to control BG - has been severely elevated. Patient on insulin pump. Nursing to encourage patient to check that pump is attached correctly. If continued issue with control of BG through the night, may need to consider reaching out to her coverage specialist/PCP. POC glucose levels today improved to 224. Pain control adequate at this time. ECF plan - accepted to [facility] today.
[2018-06-14] MEDS: Subcutaneous Insulin Pump [T:Slim] 1 EACH MC SCH (17:45)
[2018-06-14] MEDS: Acetaminophen IV 1,000 MG/100 ML INFUS..BTL IVPB PRN (18:36)
[2018-06-15] MEDS: *HR* Enoxaparin 30 MG/0.3 ML SYRINGE SQ SCH (06:17)
[2018-06-15] MEDS: *HR* HYDROcodone/Acet 10/325 mg TABLET PO PRN (07:11)
[2018-06-15] MEDS: Pregabalin 50 MG CAPSULE PO SCH (08:44)
[2018-06-15] MEDS: Loratadine 10 MG TABLET PO SCH (08:44)
[2018-06-15] MEDS: Aspirin Enteric Coated 81 MG Tablet PO SCH (08:44)
[2018-06-15] MEDS: Potassium Gluconate [Potassium] 99 MG PO SCH (08:44)
[2018-06-15] MEDS: Multivit/Ca/Min/Fe/FA 1 TAB TABLET PO SCH (08:45)
[2018-06-15] MEDS: Cholecalciferol (D-3) 1,000 UNIT TABLET PO SCH (08:45)
[2018-06-15 09:54] LABS: Basophils % 0.3 %; Eosinophils # 0.2 K/mcL (0.0-0.6); Eosinophils % 3.4 %; Hematocrit 26.6 % (35.3-44.9); Hemoglobin 8.8 g/dL (11.5-15.4); Lymphocytes # 0.6 K/mcL (0.6-4.6); Lymphocytes % 10.8 %; Mean Corpuscular HGB Conc 33.1 g/dL (31.6-35.5); Mean Corpuscular Hemoglobin 28.6 pg (28.0-33.3); Mean Corpuscular Volume 86.4 fL (83.0-100.0); Mean Platelet Volume 12.5 fL (9.4-12.4); Monocytes # 0.6 K/mcL (0.0-1.3); Neutrophils # 4.3 K/mcL (1.6-8.9); Platelet Count 118 K/mcL (140-400); Red Blood Count 3.08 M/mcL (3.82-4.97); Red Cell Distribution Width 13.8 % (11.5-14.5); Segmented Neutrophils % 73.5 %
--- NOTE | 2018-06-15 10:06 | Orthopedics Progress Note ---
Date of Encounter: 06/15/18 Time of Encounter: 10:05 - Assessment and Plan (1) Acute kidney injury Current Visit: Yes Status: Acute Subjective Interval history: Patient was seen this morning doing well without complaints. Afebrile vital signs stable. Operative extremity: Neurovascularly intact Dressing clean dry and intact Calves nontender Assessment and plan: Continue with postoperative care Plan for discharge today, hb 8.6 Objective Vital signs: Vital Signs Temp Pulse Resp BP Pulse Ox 06/15/18 06:59 98.3 F 92 16 144/78 95 06/15/18 04:18 98.6 F 88 15 146/75 94 06/14/18 22:30 99.5 F 82 14 152/78 93 06/14/18 19:57 98.8 F 85 14 144/77 91 06/14/18 15:50 99.5 F 86 17 147/74 97 06/14/18 14:48 99.4 F 86 16 130/74 93 06/14/18 12:07 98.5 F 81 19 139/74 95 Intake and Output 06/14/18 06/15/18 06/15/18 23:59 07:59 15:59 Intake Total 100 / 100 Output Total 800 / 800 1600 / 1600 Balance -700 / -700 -1600 / -1600 Intake: IV Fluids 100 / 100 Ofirmev 1,000 mg/100 ml 1,000 100 / 100 mg In 100 ml @ 400 mls/hr IVPB Q6HR PRN Rx#:[id number] Output: Urine 800 / 800 1600 / 1600 Other: Weight 137.3 kg Blood Glucose* 286 259 Patient Weight 06/15/18 23:59 Weight 137.3 kg - Labs CBC & BMP: 06/15/18 09:35 06/14/18 04:48 Labs: Abnormal lab results RBC 3.08 M/mcL (3.82-4.97) L 06/15/18 09:35 Hgb 8.8 g/dL (11.5-15.4) L 06/15/18 09:35 Hct 26.6 % (35.3-44.9) L 06/15/18 09:35 Plt Count 118 K/mcL (140-400) L 06/15/18 09:35 MPV 12.5 fL (9.4-12.4) H 06/15/18 09:35 Sodium 133 mEq/L (136-145) L 06/14/18 04:48 Creatinine 1.50 mg/dL (0.60-1.20) H 06/14/18 04:48 Est GFR ( Amer) 43 (> 60) L 06/14/18 04:48 Est GFR (Non-Af Amer) 36 (> 60) L 06/14/18 04:48 Glucose 300 mg/dL (70-105) H 06/14/18 04:48 POC Glucose 182 mg/dL (70-99) H 06/14/18 17:08 Consult Discharge Plan - Plan Referrals: Jakub Engel MD [Partnered Physician] - 07/12/18 5:00 pm Karla Sorensen PAC [Physician [employer] Help] - 06/22/18 2:00 pm (Second followup 06/30/18 @ 8am)
[2018-06-15 10:12] LABS: Calcium 8.4 mg/dL (8.6-10.3); Potassium 4.1 mEq/L (3.5-5.1)
[2018-06-15 11:45] VITALS: BP 147/76
[2018-06-15] MEDS: Subcutaneous Insulin Pump [T:Slim] 1 EACH MC SCH (14:14)
== END 2018-06-15 14:43 | DRG 467 ==
LOC: EDSEX 08:58 → SAMDAY 08:58 → 3NENU 14:20
PROVIDERS: ADMIT Orthopaedic Surgery; ATTEND Orthopaedic Surgery

== ENCOUNTER 2019-11-04 17:08 | Observation (INO) ==
[2019-11-04] MEDS ORDERED: Naloxone 0.4 MG/ML INJ IVP PRN (19:18)
[2019-11-04] MEDS ORDERED: Ondansetron ODT 4 MG TAB.RAPDIS SL PRN (19:18)
[2019-11-04] MEDS ORDERED: Morphine Sulfate 2 MG/ML SYRINGE IVP PRN (19:30)
[2019-11-04] MEDS ORDERED: D5% in Water 1,000 ML IVC PRN (19:32)
[2019-11-04] MEDS ORDERED: Dextrose Gel 15 GM/37.5 ML TUBE PO PRN ×2 (19:32)
[2019-11-04] MEDS ORDERED: *HR* Dextrose 50 % in Water (Syg) 50 ML SYRINGE IVP PRN (19:32)
[2019-11-04 19:54] LABS: Mean Corpuscular Hemoglobin 28.5 pg (28.0-33.3); Red Cell Distribution Width 12.8 % (11.5-14.5)
[2019-11-04 19:56] LABS: Hematocrit 37.2 % (35.3-44.9); Hemoglobin 11.9 g/dL (11.5-15.4); Immature Platelets 10.2 % (1.1-6.1); Mean Platelet Volume 13.3 fL (9.4-12.4); Red Blood Count 4.18 M/mcL (3.82-4.97); White Blood Count 7.4 K/mcL (4.3-11.1)
[2019-11-04 20:04] LABS: Prothrombin Time 11.2 Seconds (9.4-12.1)
[2019-11-04 20:07] LABS: Activated Partial Thrombo Time 30.8 Seconds (26.0-36.0)
[2019-11-04 20:17] LABS: Albumin 3.7 g/dL (3.5-5.7); Albumin/Globulin Ratio 1.4 (1.1-2.2); Bilirubin,Total 0.7 mg/dL (0.3-1.0); Calcium 9.3 mg/dL (8.6-10.3); Globulin 2.6 g/dL (2.4-3.5); Potassium 4.3 mEq/L (3.5-5.1); Total Protein 6.3 g/dL (6.4-8.9)
[2019-11-04] MEDS ORDERED: 0.9 % Sodium Chloride 500 ML IVC ONE (20:22)
[2019-11-04] MEDS ORDERED: 0.9 % Sodium Chloride 1,000 ML IVC ONE (20:26)
[2019-11-04] MEDS ORDERED: Insulin Human Regular 10 UNIT in 0.9 % Sodium Chloride 10 ML IV ONE (20:27)
[2019-11-04] MEDS ORDERED: 0.9 % Sodium Chloride 1,000 ML IVC SCH ×2 (20:30→23:01)
[2019-11-04 20:58] LABS: ABG Base Excess 2 mEq/L (-2 to 3); ABG HCO3 28 mEq/L (21-27); ABG Oxygen Saturation 95 % (95-98); ABG PCO2 47 mmHg (35-45); ABG PH 7.38 pH Units (7.32-7.45); ABG PO2 77 mmHg (85-104); ABG TCO2 29 mEq/L (20-26)
[2019-11-04] MEDS: Insulin LISPRO 300 UNITS/3 ML VIAL SQ SCH (21:23)
[2019-11-04 22:21] LABS: Calcium 8.7 mg/dL (8.6-10.3); Potassium 4.9 mEq/L (3.5-5.1)
[2019-11-04] MEDS: Insulin DETEMIR 100 UNIT/ML X5UNITS SQ SCH (23:53)
[2019-11-05] MEDS ORDERED: 0.9 % Sodium Chloride 500 ML IVC ONE (00:39)
[2019-11-05 05:27] LABS: Bilirubin,Urine Negative (Negative); Blood,Urine Moderate (Negative); Clarity,Urine Clear (Clear); Color,Urine Yellow (Yellow); Glucose,Urine (UA) Normal (Normal); Ketones,Urine Negative (Negative); Leukocyte Esterase,Urine Negative (Negative); Nitrite,Urine Negative (Negative); Protein,Urine 100 mg/dL (Neg-Trace); Specific Gravity,Urine 1.013 (1.010-1.025); Urobilinogen,Urine Normal (Normal)
[2019-11-05 05:29] LABS: Hematocrit 33.9 % (35.3-44.9); Hemoglobin 10.9 g/dL (11.5-15.4); Mean Corpuscular HGB Conc 32.2 g/dL (31.6-35.5); Mean Corpuscular Hemoglobin 28.3 pg (28.0-33.3); Mean Corpuscular Volume 88.1 fL (83.0-100.0); Platelet Count 107 K/mcL (140-400); Red Blood Count 3.85 M/mcL (3.82-4.97); Red Cell Distribution Width 12.6 % (11.5-14.5); White Blood Count 4.7 K/mcL (4.3-11.1)
[2019-11-05 05:52] LABS: Calcium 8.4 mg/dL (8.6-10.3)
[2019-11-05] MEDS: Morphine Sulfate 2 MG/ML SYRINGE IVP PRN ×2 (05:56→10:43)
[2019-11-05] MEDS ORDERED: carvediloL 6.25 MG TABLET PO SCH (08:00)
[2019-11-05] MEDS ORDERED: lisinopriL 10 MG TABLET PO SCH (09:00)
[2019-11-05] MEDS: Insulin LISPRO 300 UNITS/3 ML VIAL SQ SCH ×4 (09:51→21:16)
[2019-11-05] MEDS: carvediloL 6.25 MG TABLET PO SCH ×2 (10:34→16:55)
[2019-11-05] MEDS: Insulin DETEMIR 100 UNIT/ML X5UNITS SQ SCH (21:13)
[2019-11-05] MEDS: *HR* HYDROcodone/Acet 10/325 mg TABLET PO PRN (23:02)
[2019-11-06] MEDS ORDERED: Insulin LISPRO 300 UNITS/3 ML VIAL SQ ONE (02:23)
[2019-11-06] MEDS: carvediloL 6.25 MG TABLET PO SCH ×2 (06:15→16:58)
[2019-11-06] MEDS: *HR* HYDROcodone/Acet 10/325 mg TABLET PO PRN ×3 (06:18→18:46)
[2019-11-06 06:40] LABS: Hematocrit 35.6 % (35.3-44.9); Hemoglobin 11.8 g/dL (11.5-15.4); Mean Corpuscular HGB Conc 33.1 g/dL (31.6-35.5); Mean Corpuscular Hemoglobin 29.4 pg (28.0-33.3); Mean Corpuscular Volume 88.6 fL (83.0-100.0); Mean Platelet Volume 12.9 fL (9.4-12.4); Platelet Count 111 K/mcL (140-400); Red Blood Count 4.02 M/mcL (3.82-4.97); Red Cell Distribution Width 12.6 % (11.5-14.5); White Blood Count 5.4 K/mcL (4.3-11.1)
[2019-11-06 07:00] LABS: Calcium 8.5 mg/dL (8.6-10.3); Potassium 4.2 mEq/L (3.5-5.1)
[2019-11-06] MEDS: amLODIPine 5 MG TABLET PO SCH (08:18)
[2019-11-06] MEDS: Insulin LISPRO 300 UNITS/3 ML VIAL SQ SCH ×3 (08:20→16:59)
[2019-11-06] MEDS ORDERED: Torsemide 20 MG TABLET PO SCH (09:00)
[2019-11-06] MEDS: Loratadine 10 MG TABLET PO SCH (19:57)
[2019-11-06] MEDS: *HR* Heparin 5,000 UNIT/ML VIAL SQ SCH (20:17)
[2019-11-06] MEDS ORDERED: Insulin DETEMIR 100 UNIT/ML X5UNITS SQ SCH (21:00)
[2019-11-07] MEDS: *HR* HYDROcodone/Acet 10/325 mg TABLET PO PRN ×3 (02:40→16:35)
[2019-11-07] MEDS: *HR* Heparin 5,000 UNIT/ML VIAL SQ SCH ×2 (05:00→13:50)
[2019-11-07 07:14] LABS: Hematocrit 34.2 % (35.3-44.9); Hemoglobin 10.7 g/dL (11.5-15.4); Mean Corpuscular HGB Conc 31.3 g/dL (31.6-35.5); Mean Corpuscular Hemoglobin 27.7 pg (28.0-33.3); Mean Corpuscular Volume 88.6 fL (83.0-100.0); Mean Platelet Volume 12.4 fL (9.4-12.4); Platelet Count 118 K/mcL (140-400); Red Blood Count 3.86 M/mcL (3.82-4.97); Red Cell Distribution Width 12.8 % (11.5-14.5); White Blood Count 4.3 K/mcL (4.3-11.1)
[2019-11-07 07:33] LABS: Calcium 8.9 mg/dL (8.6-10.3); Potassium 4.2 mEq/L (3.5-5.1)
[2019-11-07 08:31] LABS: Estimated Average Glucose 169 mg/dl
[2019-11-07 08:40] LABS: Magnesium 1.9 mg/dL (1.6-2.6); Thyroid Stimulating Hormone 1.321 mcIU/mL (0.340-5.600)
[2019-11-07] MEDS: Insulin LISPRO 300 UNITS/3 ML VIAL SQ SCH ×3 (08:51→16:39)
[2019-11-07] MEDS: amLODIPine 5 MG TABLET PO SCH (08:52)
[2019-11-07] MEDS: Loratadine 10 MG TABLET PO SCH (08:52)
[2019-11-07] MEDS: carvediloL 6.25 MG TABLET PO SCH (08:52)
[2019-11-07 11:49] VITALS: BP 128/62
[2019-11-07] MEDS ORDERED: Gabapentin 100 MG CAPSULE PO ONE (13:41)
== END 2019-11-07 17:00 | disposition other institution (70) ==
LOC: 3NENU → SUATTDRO 19:04
PROVIDERS: ADMIT Internal Medicine; ATTEND Pharmacist